=== PATIENT | male | born 1980 | race African-American/Black ===

== ENCOUNTER 2017-10-11 16:28 | Emergency (ER) | payer SELFPAY ==
[~2017-10-11] VITALS: Ht 170.2 cm; Wt 82.7 kg
[2017-10-11 16:34] VITALS: BP 142/72; PULSE 94; RESP 16; TEMP 98.9; O2SAT 94
[2017-10-11 17:43] LABS: INTERNATIONAL NORMALIZED RATIO 1.1 RATIO; PROTHROMBIN TIME - PATIENT 11.5 SEC (9.8-11.6)
[2017-10-11 17:53] LABS: BICARBONATE 24.3 MEQ/L (21.0-32.0); BLOOD UREA NITROGEN 12 MG/DL (7-18); CALCIUM 8.5 MG/DL (8.5-10.1); CHLORIDE 104 MEQ/L (98-107); CREATININE 1.26 MG/DL (0.60-1.30); GLOMERULAR FILTRATION RATE 64 ML/MIN (>89); GLUCOSE,RANDOM 112 MG/DL (74-106); MAGNESIUM 2.1 MG/DL (1.5-2.5); SODIUM (NA) 136 MEQ/L (136-145)
--- NOTE | 2017-10-11 17:55 | RADRPT ---
EXAM DATE/TIME: 10/11/2017 17:06 [place] COMPARISON: No previous studies available for comparison. INDICATIONS : Chest pain starting today MEDICAL HISTORY : None. SURGICAL HISTORY : None. ENCOUNTER: Initial ACUITY: 1 day PAIN SCORE: 9/10 LOCATION: Left chest FINDINGS: PA and lateral views of the chest demonstrate the lungs to be symmetrically aerated without evidence of mass, infiltrate or effusion. The cardiomediastinal contours are unremarkable. Osseous structure s are intact. CONCLUSION: 1. No acute cardiopulmonary disease. Chet Mcknight MD on October 11, 2017 at 17:52 Board Certified Radiologist. This report was verified electronically.
[2017-10-11 17:57] LABS: TROPONIN I LESS THAN 0.02 NG/ML (0.02-0.05)
[2017-10-11] MEDS ORDERED: SODIUM CHLORIDE 0.9% FLUSH 10 ML FLUSH IVF PRN (22:00)
[2017-10-11] MEDS ORDERED: predniSONE 20 MG TAB PO ONE (22:00)
--- NOTE | 2017-10-11 22:01 | PD ---
HPI Chief Complaint: Chest Pain Time Seen by Provider: 21:53 Travel History International Travel<30 days: No Contact w/Intl Traveler<30days: No Traveled to known affect area: No History of Present Illness HPI 37-year-old Afro-[place] male presents to the emergency Department with 2 day history of increasing cough, wheeze, general body aches and fever. Patient has had chest pain from cough with radiation to the left arm. He has generalized malaise and muscle aches. He is unsure how high his fever has been. Patient states he has been out of his albuterol metered-dose inhaler which she uses for asthma when he is sick. Patient states he has been coughing up moderate amount of clear mucus. He's had some nausea and a small amount of vomiting today. He denies abdominal pain at this time. Chest pain is a tightness and soreness. He states is about a 6 out of 10. He is short of breath with exertion. Patient states he has needed prednisone in the past for his asthma. He has no known drug allergies. PFSH Past Medical History Cardiovascular Problems: Yes (pericarditis) Respiratory: Yes (asthma) Social History Alcohol Use: Yes Tobacco Use: No Substance Use: No Allergies-Medications (Allergen,Severity, Reaction): Coded Allergies: No Known Allergies (Unverified , 10/11/17) Reported Meds & Prescriptions Reported Meds & Active Scripts Active Azithromycin 500 Mg Tab 500 Mg PO DAILY Prednisone 20 Mg Tab 20 Mg PO BID 7 Days Ventolin Hfa 18 GM Inh (Albuterol Sulfate) 90 Mcg/Act Aer 2 Puff INH Q4-6H PRN Tamiflu (Oseltamivir Phosphate) 75 Mg Cap 75 Mg PO BID 5 Days Review of Systems Except as stated in HPI: all other systems reviewed are Neg General / Constitutional: Positive: Fever, Chills Eyes: No: Visual changes HENT: Positive: Sore Throat, Rhinitis, Rhinorrhea, Congestion, No: Headaches, Vertigo, Lightheadedness, Nosebleed, Neck Stiffness, Neck Pain, Dental Difficulties, Earache Cardiovascular: No: Chest Pain or Discomfort Respiratory: Positive: Cough, Shortness of Breath, Wheezing, Night Sweats, Pleuritic Pain, No: Sneezing, Orthopnea, Hemoptysis Gastrointestinal: Positive: Nausea, Vomiting, No: Diarrhea, Abdominal Pain Genitourinary: No: Dysuria Musculoskeletal: No: Pain Skin: No Rash Neurologic: No: Weakness Psychiatric: No: Depression Endocrine: No: Polydipsia Hematologic/Lymphatic: No: Easy Bruising Physical Exam Narrative GENERAL: Patient appears in mild distress. O2 sat is 96% on room air, however the patient feels improved with 2 L oxygen via nasal cannula. SKIN: Warm and dry. Normal color. Normal turgor. No diaphoresis. HEAD: Atraumatic. Normocephalic. EYES: Pupils equal and round. No scleral icterus. No injection or drainage. ENT: No nasal bleeding or discharge. Mucous membranes pink and moist. TMs are clear. Posterior pharynx unremarkable. Patient has moderate clear rhinitis. NECK: Trachea midline. Supple and nontender. CARDIOVASCULAR: Regular rate and rhythm. RESPIRATORY: No accessory muscle use. Diffuse wheezes throughout to auscultation. No rales or rhonchi. Breath sounds equal bilaterally. GASTROINTESTINAL: Abdomen soft, non-tender, nondistended. Hepatic and splenic margins not palpable. MUSCULOSKELETAL: Extremities without clubbing, cyanosis, or edema. No obvious deformities. NEUROLOGICAL: Awake and alert. No obvious cranial nerve deficits. Motor grossly within normal limits. Five out of 5 muscle strength in the arms and legs. Normal speech. PSYCHIATRIC: Appropriate mood and affect; insight and judgment normal. Data Data Last Documented VS Vital Signs Date Time Temp Pulse Resp B/P (MAP) Pulse Ox O2 Delivery O2 Flow Rate FiO2 10/11/17 22:04 79 16 129/79 (96) 97 10/11/17 22:02 Nasal Cannula 2.00 10/11/17 16:34 98.9 Orders Orders Electrocardiogram (10/11/17 16:44) Basic Metabolic Panel (Bmp) (10/11/17 16:44) Ckmb (Isoenzyme) Profile (10/11/17 16:44) Complete Blood Count With Diff (10/11/17 16:44) Magnesium (Mg) (10/11/17 16:44) Prothrombin Time / Inr (Pt) (10/11/17 16:44) Act Partial Throm Time (Ptt) (10/11/17 16:44) Troponin I (10/11/17 16:44) Chest, Pa & Lat (10/11/17 16:44) CKMB (10/11/17 16:54) CKMB% (10/11/17 16:54) Ecg Monitoring (10/11/17 21:58) Oximetry (10/11/17 21:58) Oxygen Administration (10/11/17 21:58) Prednisone (Deltasone) (10/11/17 22:00) Albuterol-Ipratropium Neb (Duoneb Neb) (10/11/17 22:00) Sodium Chloride 0.9% Flush (Ns Flush) (10/11/17 22:00) Influenzae A/B Antigen (10/11/17 21:58) Oseltamivir (Tamiflu) (10/11/17 22:45) Labs Laboratory Tests Test 10/11/17 16:54 Prothrombin Time 11.5 SEC Prothromb Time International Ratio 1.1 RATIO Activated Partial Thromboplast Time 29.2 SEC Blood Urea Nitrogen 12 MG/DL Creatinine 1.26 MG/DL Random Glucose 112 MG/DL Calcium Level 8.5 MG/DL Magnesium Level 2.1 MG/DL Sodium Level 136 MEQ/L Potassium Level 3.4 MEQ/L Chloride Level 104 MEQ/L Carbon Dioxide Level 24.3 MEQ/L Anion Gap 8 MEQ/L Estimat Glomerular Filtration Rate 64 ML/MIN Total Creatine Kinase 593 U/L Creatine Kinase MB 2.0 NG/ML Creatine Kinase MB % 0.3 % Troponin I LESS THAN 0.02 NG/ML MDM Medical Decision Making Medical Screen Exam Complete: Yes Emergency Medical Condition: Yes Medical Record Reviewed: Yes Differential Diagnosis Influenza. Febrile illness. Bronchitis. Asthma with exacerbation. Pneumonia. Narrative Course Patient appears stable at time of exam. Chest x-ray was performed in triage showing no obvious infiltrate or other acute abnormality. Rapid influenza is ordered. Patient is given prednisone 60 mg by mouth. Patient is given DuoNeb 3. CMP shows slightly low potassium at 3.4. Random glucose 112, creatinine kinase is elevated 593, troponin is less than 0.02. Coagulation studies are normal. Rapid influenza is positive for influenza A. Patient is given first dose of Tamiflu 75 mg by mouth. Patient will be continued on Tamiflu 75 mg twice a day 5 days. Patient also continued on prednisone 20 mg twice a day 7 days. Patient given a refill of his Ventolin 2 puffs every 4-6 hours. Patient also voiced on azithromycin 500 mg daily #5. Note is given for work. Patient can take Tylenol for fever and chills. Patient to rest push fluids and follow-up if symptoms do not improve or worsen as needed. Diagnosis Primary Impression: Influenza A (H1N1) Additional Impression: Asthma exacerbation Qualified Codes: J45.901 - Unspecified asthma with (acute) exacerbation Patient Instructions: Asthma (ED), General Instructions, H1N1 Influenza (ED) Departure Forms: Work Release Enter return to work date: Oct 15, 2017 Additional Instructions: Rapid influenza is positive for influenza A. Patient is given first dose of Tamiflu 75 mg by mouth. Patient will be continued on Tamiflu 75 mg twice a day 5 days. Patient also continued on prednisone 20 mg twice a day 7 days. Patient given a refill of his Ventolin 2 puffs every 4-6 hours. Patient also voiced on azithromycin 500 mg daily #5. Note is given for work. Patient can take Tylenol for fever and chills. Patient to rest push fluids and follow-up if symptoms do not improve or worsen as needed. Med/Other Pt SpecificInfo: Prescription(s) given Scripts Azithromycin (Azithromycin) 500 Mg Tab 500 MG PO DAILY for Infection, #5 TAB 0 Refills Prov: Yodit Charlton MD 10/11/17 Prednisone (Prednisone) 20 Mg Tab 20 MG PO BID for 7 Days, #14 TAB 0 Refills Prov: Yodit Charlton MD 10/11/17 Albuterol 18 GM Inh (Ventolin Hfa 18 GM Inh) 90 Mcg/Act Aer 2 PUFF INH Q4-6H Y for SHORTNESS OF BREATH, #1 INHALER 0 Refills Prov: Yodit Charlton MD 10/11/17 Oseltamivir (Tamiflu) 75 Mg Cap 75 MG PO BID for Mgmt Viral Infection for 5 Days, #10 CAP 0 Refills Prov: Yodit Charlton MD 10/11/17 Disposition: 01 DISCHARGE HOME Condition: Stable Stephon Carvajal Oct 11, 2017 22:01
[2017-10-11 22:04] VITALS: BP 129/79; PULSE 79; RESP 16; O2SAT 97
[2017-10-11] MEDS: RESP: ALBUTEROL 2.5 MG/IPRATROPIUM 0.5 MG NEB (SCH) INH (22:19)
[2017-10-11] MEDS ORDERED: AZIT500T2 PO (22:35)
[2017-10-11] MEDS ORDERED: PRED20 PO (22:35)
[2017-10-11] MEDS ORDERED: VENTAER INH (22:35)
[2017-10-11] MEDS ORDERED: OSEL75 PO (22:35)
[2017-10-11] MEDS ORDERED: OSELTAMIVIR PHOSPHATE 75 MG CAP PO ONE (22:45)
--- NOTE | 2017-10-12 15:29 | EKG ---
Date Performed: 10/11/2017 Time Performed: 16:50:15 PTAGE: 37 years EKG: Sinus rhythm WITH SINUS ARRHYTHMIA POSSIBLE LEFT ATRIAL ENLARGEMENT BORDERLINE ECG NO PREVIOUS TRACING DOCTOR: Choco Licona Interpretating Date/Time 10/12/2017 15:28:31
== END 2017-10-11 23:27 | disposition home or self-care (01) ==
LOC: NEPC 16:28
DX: J10.1 Influenza due to other identified influenza virus with other respiratory manifestations (principal); J45.901 Unspecified asthma with (acute) exacerbation; R11.2 Nausea with vomiting, unspecified
CPT/HCPCS: 71046; 80048; 82550; 82552; 83735; 84484; 85610; 85730; 87804; 93005; 94640; 94664; 99285; J7512

== ENCOUNTER 2018-03-01 07:37 | Emergency (ER) | payer SELFPAY ==
[~2018-03-01] VITALS: Ht 177.8 cm; Wt 80.0 kg
[~2018-03-01 07:37] MED LIST: AZIT500T2 PO; OSEL75 PO; PRED20 PO; VENTAER INH
[2018-03-01 07:45] VITALS: BP 128/66; PULSE 77; RESP 16; TEMP 98.3; O2SAT 98
--- NOTE | 2018-03-01 08:25 | PD ---
HPI Chief Complaint: Injury Time Seen by Provider: 08:09 Travel History International Travel<30 days: No Contact w/Intl Traveler<30days: No Traveled to known affect area: No History of Present Illness HPI 37yo M with PMH of asthma presents to the ED with c/o pain in the bottom of his right foot for years. There is a corn in the bottom of his foot 5th metatarsal that hurts. Denies any trauma, fever, chest pain, n/v, abdominal pain, focal weakness or numbness. Pt has mild wheezing on exam and said his asthma has been acting up and would like some treatments. PFSH Past Medical History Asthma: Yes Cardiovascular Problems: Yes Respiratory: Yes (asthma) Past Surgical History Surgical History: No Previous Surgery Social History Alcohol Use: Yes Tobacco Use: Yes Substance Use: Yes Allergies-Medications (Allergen,Severity, Reaction): Coded Allergies: No Known Allergies (Unverified , 03/01/18) Reported Meds & Prescriptions Reported Meds & Active Scripts Active Review of Systems Except as stated in HPI: all other systems reviewed are Neg Physical Exam Narrative GENERAL: 37yo M not in distress. SKIN: Focused skin assessment warm/dry. HEAD: Atraumatic. Normocephalic. EYES: Pupils equal and round. No scleral icterus. No injection or drainage. ENT: No nasal bleeding or discharge. Mucous membranes pink and moist. NECK: Trachea midline. No JVD. CARDIOVASCULAR: Regular rate and rhythm. No murmur appreciated. RESPIRATORY: No accessory muscle use. End inspiratory wheezing bilaterally. Breath sounds equal bilaterally. GASTROINTESTINAL: Abdomen soft, non-tender, nondistended. MUSCULOSKELETAL: Right foot: +Thickened skin in plantar aspect of right fifth metatarsal. No drainage or erythema. DP 2+. Sensation intact. NEUROLOGICAL: Awake and alert. No obvious cranial nerve deficits. Motor grossly within normal limits. Normal speech. PSYCHIATRIC: Appropriate mood and affect; insight and judgment normal. Data Data Last Documented VS Vital Signs Date Time Temp Pulse Resp B/P (MAP) Pulse Ox O2 Delivery O2 Flow Rate FiO2 03/01/18 07:45 98.3 77 16 128/66 (86) 98 Orders Orders Albuterol-Ipratropium Neb (Duoneb Neb) (03/01/18 08:30) Prednisone (Deltasone) (03/01/18 09:00) Acetaminophen (Tylenol) (03/01/18 08:30) [facility] Medical Decision Making Medical Screen Exam Complete: Yes Emergency Medical Condition: Yes Differential Diagnosis Jenkins on foot vs. mild asthma exacerbation Narrative Course 37yo M here with c/o pain in his right foot for years. He has a corn in the base of his foot where it hurts. No trauma. Pt also found to have mild wheezing and wants treatment for asthma so given duonebs and prednisone. He is saturating at 98% on RA and is well appearing. Given acetaminophen for pain. Return precautions given. Diagnosis Primary Impression: Asthma exacerbation Qualified Codes: J45.21 - Mild intermittent asthma with (acute) exacerbation Additional Impression: Jenkins of foot Referrals: Carolina Ochoa DPM as needed Patient Instructions: General Instructions Departure Forms: Tests/Procedures Additional Instructions: Please soak your right foot with water and epsom salt. Use over the counter corn therapy for foot. Please follow up with podiatry as needed as outpatient. Please follow up with your primary care physician regarding your asthma. Return to the ED if symptoms worsen. Med/Other Pt SpecificInfo: Prescription(s) given Scripts Acetaminophen (Tylenol) 325 Mg Tab 650 MG PO Q6H Y for PAIN SCALE 1 TO 4, #20 TAB 0 Refills Prov: Manju Gurrola DO 03/01/18 Prednisone (Prednisone) 50 Mg Tab 50 MG PO DAILY for 5 Days, #5 TAB 0 Refills Prov: Manju Gurrola DO 03/01/18 Albuterol 18 GM Inh (Ventolin Hfa 18 GM Inh) 90 Mcg/Act Aer 2 PUFF INH Q4H Y for SHORTNESS OF BREATH, #1 INHALER 0 Refills Prov: Manju Gurrola DO 03/01/18 Disposition: 01 DISCHARGE HOME Condition: Stable Manju Gurrola DO Mar 01, 2018 08:25
[2018-03-01] MEDS: RESP: ALBUTEROL 2.5 MG/IPRATROPIUM 0.5 MG NEB (SCH) INH (08:26)
[2018-03-01] MEDS ORDERED: ACETAMINOPHEN 500 MG CPLT PO ONE (08:30)
[2018-03-01] MEDS ORDERED: predniSONE 20 MG TAB PO SCH (09:00)
[2018-03-01] MEDS ORDERED: TYLE325T PO (10:53)
[2018-03-01] MEDS ORDERED: VENTAER INH (10:53)
[2018-03-01] MEDS ORDERED: PRED50 PO (10:53)
== END 2018-03-01 11:38 | disposition home or self-care (01) ==
LOC: NEPC 07:37
DX: J45.21 Mild intermittent asthma with (acute) exacerbation (principal); L84 Corns and callosities; Z72.0 Tobacco use
CPT/HCPCS: 94640; 94664; 99283; J7512